=== PATIENT | female | born 1975 | race Caucasian/White ===

== ENCOUNTER 2017-02-27 21:38 | Emergency (ER) | payer OTHER ==
[2017-02-27 21:42] VITALS: RESP 16; O2SAT 95
--- NOTE | 2017-02-27 22:05 | EDPHY ---
H & P Stated Complaint: thumb lac Time Seen by Provider: 02/27/17 22:02 HPI/ROS: HPI: This is a 41-year-old female who presents with Chief Complaint: Left thumb laceration Location: Left thumb Quality: Laceration Duration: 30 minutes prior to arrival Signs and Symptoms: + bleeding, no radiation, no numbness, no weakness, no tingling, no decreased range of motion, no swelling, + pain Timing:acute Severity: Mild Context: Patient is right-hand dominant, was making scones in the kitchen, she accidentally cut the tip of her left thumb with her kitchen knife. Immediately started to bleed and she felt pain that was constant, moderate, nonradiating in nature. She applied paper towels wrapped with duct tape which stop the bleeding. She reports her tetanus is up-to-date. Denies skin color changes, nail involvement, paresthesias, decreased range of motion. Modifying Factors: Direct pressure Comment: ROS: see HPI Constitutional: No fever, no chills, no weight loss Eyes: No blurred vision Respiratory: No shortness of breath, no cough Cardiovascular: No chest pain Gastrointestinal: No nausea, no vomiting no diarrhea Genitourinary: No dysuria Extremities: No myalgias Neurologic: No weakness, no numbness Skin: No rashes Hematologic: No bruising, no bleeding MEDICAL/SURGICAL/SOCIAL HISTORY: Medical history: Generally healthy. Does not take any regular medications. Surgical history: Denies Social history: CONSTITUTIONAL: Anxious well-developed well-nourished adult white female, awake and alert, no obvious distress HEENT: Atraumatic and normocephalic, PERRL, EOMI. Tympanic membranes clear. Oropharynx clear, no exudate and moist pink mucosa. Airway patent. No lymphadenopathy. No meningismus. Cardiovascular: Normal S1/S2, regular rate, regular rhythm, without murmur rub or gallop. PULMONARY/CHEST: Symmetrical and nontender. Clear to auscultation bilaterally. Good air movement. No accessory muscle usage. ABDOMEN: Soft, nondistended, nontender, no rebound, no guarding, no peritoneal signs, no masses or organomegaly. No CVAT. EXTREMITIES: 2/2 radial pulses, senior [employer] strength 5/5, left thumb tip 1/2 inch skin avulsion with only dermal involvement; small finger nail tip removed; nail bed intact. DIP/PIP flexion, extension light touch sensation intact. no deformities, no clubbing, no cyanosis or edema. NEUROLOGICAL: no focal neuro deficits. GCS 15. SKIN: Warm and dry, no erythema. no rash. Good capillary refill. Source: Patient Exam Limitations: No limitations - Personal History LMP (Females 10-55): Irregular Current Tetanus/Diphtheria Vaccine: Yes Current Tetanus Diphtheria and Acellular Pertussis (TDAP): Yes - Medical/Surgical History Hx Asthma: No Hx Chronic Respiratory Disease: No Hx Diabetes: No Hx Cardiac Disease: No Hx Renal Disease: No Hx Cirrhosis: No Hx Alcoholism: No Hx HIV/AIDS: No Hx Splenectomy or Spleen Trauma: No - Social History Smoking Status: Never smoked Constitutional: Initial Vital Signs Heart Rate 83 02/27/17 21:40 Respiratory Rate 16 02/27/17 21:40 Blood Pressure 111/80 02/27/17 21:40 O2 Sat (%) 95 02/27/17 21:40 O2 Delivery Mode Room Air Allergies/Adverse Reactions: Penicillins Allergy (Unverified 07/01/15 09:49) Medical Decision Making - Diagnostics Imaging Results: Imaging Impressions Finger X-Ray 02/27/17 22:02 Impression: No acute fracture. Procedures: Procedure: Laceration repair. Verbal consent was obtained from the patient. The 1/2 inch simple skin avulsion laceration on the tip of left thumb was anesthetized in the usual fashion using a digital block with 1% lidocaine without epinephrine. The wound was irrigated, draped and explored to its base with a gloved finger. There were no deep structures involved. No tendon injury was identified. Silver nitrate stick x1 and Surgicel was used for to obtain hemostasis. Xeroform, clean sterile dressing, a cage finger splint applied. The procedure was performed by myself. Procedure: Splint placement. A finger splint was applied by the Emergency Room pharmaceutical laboratory technician. After application of the splint I returned and re-examined the patient. The splint was adequately immobilizing the joint and distal to the splint the patient's circulation and sensation was intact. ED Course/Re-evaluation: X-ray, wound care, laceration repair ordered Tetanus up-to-date Small superficial skin avulsion; sutures not indicated; will need to heal by secondary intention. No signs of neurovascular compromise/tenting of skin/compartment syndrome/ extremities and joints examined above and below area of concern and are neurovascularly intact. This patient was seen with secondary supervising physician. Patient's presentation, labs, plan of care were reviewed with secondary supervising physician. Differential Diagnosis: Differential diagnosis includes but is not limited to laceration, nerve injury, tendon injury, phalanx fracture, nail involvement. Departure - Departure Disposition: Home, Routine, Self-Care Clinical Impression: Avulsion of skin of finger without complication Qualifiers: Encounter type: initial encounter Qualified Code(s): S61.209A - Unspecified open wound of unspecified finger without damage to nail, initial encounter Condition: Good Instructions: Wound Infection (ED), Skin Avulsion (ED) Additional Instructions: Keep the dressing and splint dry and in place for 3 days. After 3 days, you may remove the dressing and splint; wash the site daily with mild soap and water; then pat dry. Apply topical antibiotic ointment and cover with clear sterile dressing until fully healed. Take Tylenol 650 mg every 4 hours and/or Ibuprofen 600 mg every 8 hours with food as needed for pain. Apply ice for 30 minutes at a time; 2-3 times per day for the next 1-2 days. Follow up with Hand surgery in 7-10 days if any symptoms of numbness, decreased range of motion, skin color changes. The x-rays obtained in the emergency department today demonstrate no evidence of an obvious fracture. Sometimes fractures are not obvious on the initial set of x-rays performed in the ED. For this reason, you should have repeat x-rays performed in 7-10 days if you are having any pain exclude the possibility of an occult fracture. Referrals: Eugenie Trivedi MD [Medical Doctor] - As per Instructions
[2017-02-27] MEDS ORDERED: SILVER NITRATE APPLICATOR 1 APPL TP ONE (22:42)
[2017-02-27 22:59] VITALS: BP 110/80; PULSE 80
== END 2017-02-27 22:54 | disposition home or self-care (01) ==
DX: S61.102A Unspecified open wound of left thumb with damage to nail, initial encounter (principal); W26.0XXA Contact with knife, initial encounter; Y92.000 Kitchen of unspecified non-institutional (private) residence as the place of occurrence of the external cause; Y93.G1 Activity, food preparation and clean up
CPT/HCPCS: L3925